=== PATIENT | female | born 1980 | race Caucasian/White ===

== ENCOUNTER → 2023-11-24 14:52 | Outpatient (REF) | payer OTHER, SELFPAY | LOC: WDC 14:52 | PROVIDERS: ATTENDING PHYSICIAN Obstetrics & Gynecology; FAMILY PHYSICIAN Family Medicine | DX: Z12.31 Encounter for screening mammogram for malignant neoplasm of breast (principal) | CPT/HCPCS: 77063; 77067 ==

== ENCOUNTER → 2024-03-09 17:41 | Outpatient (REF) | payer OTHER, SELFPAY | LOC: RAD 17:41 | PROVIDERS: ATTENDING PHYSICIAN Physician Assistant Medical | DX: R10.11 Right upper quadrant pain (principal) | CPT/HCPCS: 76700 ==

== ENCOUNTER → 2024-06-14 12:00 | Outpatient (REF) | payer OTHER, SELFPAY | LOC: DHSLP 12:00 | PROVIDERS: ATTENDING PHYSICIAN Internal Medicine; FAMILY PHYSICIAN Physician Assistant Medical | DX: G47.19 Other hypersomnia (principal); G47.8 Other sleep disorders; R06.83 Snoring | CPT/HCPCS: 95800 ==

== ENCOUNTER → 2024-06-30 07:59 | Outpatient (REF) | payer OTHER, SELFPAY | LOC: RAD 07:59 | PROVIDERS: ATTENDING PHYSICIAN Physician Assistant; FAMILY PHYSICIAN Physician Assistant Medical | DX: R10.11 Right upper quadrant pain (principal) | CPT/HCPCS: 78227; A9537; J2805 ==

== ENCOUNTER → 2024-07-01 16:21 | Outpatient (REF) | payer OTHER, SELFPAY | LOC: RAD 16:21 | PROVIDERS: ATTENDING PHYSICIAN Family Medicine; FAMILY PHYSICIAN Physician Assistant Medical | DX: R22.1 Localized swelling, mass and lump, neck (principal) | CPT/HCPCS: 76536 ==

== ENCOUNTER 2024-07-26 06:43 | Day surgery (SDC) | payer BC, SELFPAY | END 2024-07-26 15:51 | disposition home or self-care (01) | LOC: GI 06:43 | PROVIDERS: ATTENDING PHYSICIAN Internal Medicine Gastroenterology | DX: Z12.11 Encounter for screening for malignant neoplasm of colon (principal); K63.5 Polyp of colon; K63.89 Other specified diseases of intestine; K56.690 Other partial intestinal obstruction; D12.8 Benign neoplasm of rectum | CPT/HCPCS: 45385; 45380; 88305 ==

== ENCOUNTER → 2024-09-29 16:56 | Outpatient (REF) | payer BC, SELFPAY | LOC: RAD 16:56 | PROVIDERS: ATTENDING PHYSICIAN Internal Medicine Gastroenterology; FAMILY PHYSICIAN Family Medicine | DX: K63.9 Disease of intestine, unspecified (principal) | CPT/HCPCS: 74177; Q9967 ==